=== PATIENT | female | born 1935 | race Two or more races ===

== ENCOUNTER 2024-06-24 21:56 | Inpatient (IN) | payer MEDICARE, OTHER ==
[~2024-06-24] VITALS: Ht 154.9 cm; Wt 52.2 kg
[2024-06-24 23:36] LABS: BASOPHILS # (AUTO) 0.1 K/uL (0.0-0.2); EOSINOPHILS # (AUTO) 0.1 K/uL (0.0-0.7); EOSINOPHILS % (AUTO) 1.1 % (0.0-6.0); HEMATOCRIT 37 % (33-45); HEMOGLOBIN 12.3 g/dL (11.5-14.8); LYMPHOCYTES # (AUTO) 1.5 K/uL (0.8-4.8); LYMPHOCYTES % (AUTO) 26.7 % (20.0-44.0); MEAN CORPUSCULAR HEMOGLOBIN 31 PG (26.0-33.0); MEAN CORPUSCULAR HGB CONC 34 g/dl (31.0-36.0); MEAN CORPUSCULAR VOLUME 92 fL (82-100); MONOCYTES # (AUTO) 0.4 K/uL (0.1-1.30); MONOCYTES % (AUTO) 7.5 % (2.0-12.0); NEUTROPHILS # (AUTO) 3.6 K/uL (1.8-8.9); NEUTROPHILS % (AUTO) 63.7 % (43.0-81.0); PLATELET COUNT (AUTO) 241 K/uL (150-450); RED BLOOD CELL COUNT(AUTO) 3.99 MIL/uL (4.0-5.2); RED CELL DISTRIBUTION WIDTH 14.3 % (11.5-15.0); WHITE BLOOD COUNT (AUTO) 5.7 K/uL (4.3-11.0)
[2024-06-24 23:43] LABS: CALCIUM, SERUM 9.3 mg/dL (8.5-10.1); CARBON DIOXIDE 26 mmol/L (21-32); CHLORIDE 105 mmol/L (98-107); GLUCOSE 103 mg/dL (74-106); POTASSIUM 3.9 mmol/L (3.5-5.1); SODIUM SERUM 139 mmol/L (136-145); UREA NITROGEN, BLOOD 26 mg/dL (7-18)
[2024-06-24 23:44] LABS: APPEARANCE,URINE CLOUDY (CLEAR); BILIRUBIN,URINE NEGATIVE (NEGATIVE); BLOOD, URINE TRACE-INTA Ery/uL (NEGATIVE); COLOR,URINE YELLOW (YELLOW); KETONES,URINE TRACE mg/dL (NEGATIVE); LEUKOCYTE ESTERASE ,URINE 2+ (NEGATIVE); NITRITE, URINE POSITIVE (NEGATIVE); PH,URINE 5.5 (5.0-8.0); PROTEIN,URINE NEGATIVE (NEGATIVE); UGLUCOSE NEGATIVE (NEGATIVE); UROBILINOGEN,URINE 0.2 EU/dL (0.2)
[2024-06-24 23:48] LABS: BACTERIA,URINE Many /HPF (None Seen)
[2024-06-24 23:49] LABS: ADD URINE CULTURE YES; WBC,URINE 51-80 /HPF (0-3)
[2024-06-24 23:50] LABS: SQUAMOUS EPITHELIAL CELL,UR Few /HPF (None Seen)
[2024-06-24 23:50] LABS: ACETAMINOPHEN <10 ug/ml (10-30); ALANINE AMINOTRANSFERASE 16 U/L (12-78); ALBUMIN 3.1 g/dL (3.4-5.0); ALCOHOL, BLOOD < 3 mg/dL (0-10); ALKALINE PHOSPHATASE 80 U/L (46-116); ASPARTATE AMINOTRANSFERASE 20 U/L (15-37); BILIRUBIN,DIRECT 0.1 mg/dL (0.0-0.2); BILIRUBIN,TOTAL 0.5 mg/dL (0.2-1.0); SALICYLATE < 2.3 mg/dL (2.8-20.0); TOTAL PROTEIN, SERUM 6.6 g/dL (6.4-8.2)
[2024-06-25] LABS: AMPHETAMINE, URINE NEGATIVE (NEGATIVE); BARBITURATE, URINE NEGATIVE (NEGATIVE); BENZODIAZEPINE, URINE NEGATIVE (NEGATIVE); CANNABINOID, URINE NEGATIVE (NEGATIVE); COCCAINE, URINE NEGATIVE (NEGATIVE); OPIATE, URINE NEGATIVE (NEGATIVE); PHENCYCLIDINE SCREEN,URINE NEGATIVE (NEGATIVE)
[2024-06-25] MEDS ORDERED: DEXTROSE 50%-WATER 50 ML DISP.SYRIN IV PRN (00:30)
[2024-06-25] MEDS ORDERED: CEPHALEXIN MONOHYDRATE 500 MG CAPSULE PO ONE (01:09)
[2024-06-25] MEDS: CEPHALEXIN MONOHYDRATE 500 MG CAPSULE PO ONE (01:13)
[2024-06-25] MEDS ORDERED: DIPH25CA83 PO (01:16)
[2024-06-25] MEDS ORDERED: ACET-3117 PO (01:16)
[2024-06-25] MEDS ORDERED: MENT7.6L2 PO (01:21)
[2024-06-25] MEDS ORDERED: GUAI-1189 (01:21)
[2024-06-25] MEDS ORDERED: NITR0.4T48 SL (01:21)
[2024-06-25] MEDS ORDERED: IBUP-1953 PO (01:21)
[2024-06-25] MEDS ORDERED: LORAZEPAM 0.5 MG TABLET PO PRN ×2 (03:00)
[2024-06-25] MEDS ORDERED: ACETAMINOPHEN 325 MG TABLET PO PRN (03:00)
[2024-06-25] MEDS ORDERED: MAGNESIUM HYDROXIDE 30 ML UDC PO PRN (03:00)
[2024-06-25] MEDS ORDERED: TEMAZEPAM 7.5 MG CAPSULE PO PRN (03:00)
[2024-06-25] MEDS ORDERED: MAG HYDROX/AL HYDROX/SIMETH 30 ML UDC PO PRN (03:00)
[2024-06-25] MEDS: BLOOD SUGAR DIAGNOSTIC 1 EACH STRIP IN ONE (03:31)
[2024-06-25] MEDS: BLOOD SUGAR DIAGNOSTIC 1 EACH STRIP IN SCH (07:45)
[2024-06-25 08:00] VITALS: BP 126/63; TEMP 97.9; O2SAT 100
[2024-06-25] MEDS: CEPHALEXIN MONOHYDRATE 500 MG CAPSULE PO SCH (08:52)
[2024-06-25] MEDS: DIVALPROEX SODIUM 125 MG TABLET.DR PO SCH (10:30)
[2024-06-25] MEDS: DIVALPROEX SODIUM 125 MG CAP.SPRINK PO SCH (17:00)
[2024-06-25 20:16] VITALS: BP 130/72; TEMP 98.1; O2SAT 100
[2024-06-25] MEDS: risperiDONE 0.25 MG TABLET PO SCH (22:05)
[2024-06-26 08:00] VITALS: BP 120/75; TEMP 97.8; O2SAT 100
[2024-06-26 16:00] VITALS: BP 127/64; TEMP 97.8; O2SAT 98
[2024-06-27 08:00] VITALS: BP 128/58; TEMP 98; O2SAT 96
[2024-06-27 16:00] VITALS: BP 143/79; TEMP 98; O2SAT 99
[2024-06-27 21:15] VITALS: BP 142/72; TEMP 98.1; O2SAT 99
[2024-06-28 16:00] VITALS: BP 126/74; TEMP 98.1; O2SAT 100
[2024-06-28 20:13] VITALS: BP 151/83; TEMP 98; O2SAT 96
[2024-06-28] MEDS: TEMAZEPAM 7.5 MG CAPSULE PO PRN (21:35)
[2024-06-29 16:00] VITALS: BP 129/69; TEMP 97.5; O2SAT 100
[2024-06-29] MEDS: DIVALPROEX SODIUM 125 MG CAP.SPRINK PO SCH (16:56)
[2024-06-29 20:19] VITALS: BP 124/67; TEMP 97.7; O2SAT 100
[2024-06-30 08:00] VITALS: BP 138/87; TEMP 97.9; O2SAT 100
[2024-06-30] MEDS: LEVOFLOXACIN (250MG) 250 MG TABLET PO SCH (10:30)
[2024-06-30 16:00] VITALS: BP 117/71; TEMP 98.6; O2SAT 96
[2024-06-30 20:10] VITALS: BP 145/71; TEMP 98.3; O2SAT 100
[2024-07-01 08:00] VITALS: BP 149/63; TEMP 97.4; O2SAT 95
[2024-07-01 16:00] VITALS: BP 117/72; TEMP 98; O2SAT 99
[2024-07-01 20:21] VITALS: BP 127/68; TEMP 98.4; O2SAT 98
[2024-07-02 08:00] VITALS: BP 128/83; TEMP 98.1; O2SAT 99
[2024-07-02 16:00] VITALS: BP 121/78; TEMP 97.7; O2SAT 97
[2024-07-02 21:16] VITALS: BP 130/64; TEMP 98.4; O2SAT 98
[2024-07-02] MEDS: risperiDONE 0.25 MG TABLET PO SCH (21:20)
[2024-07-03 08:00] VITALS: BP 131/60; TEMP 97.5; O2SAT 97
[2024-07-03 16:00] VITALS: BP 110/66; TEMP 97.7; O2SAT 98
[2024-07-03 20:41] VITALS: BP 103/65; TEMP 98.3; O2SAT 98
[2024-07-04 08:00] VITALS: BP 141/64; TEMP 98.1; O2SAT 100
[2024-07-04] MEDS ORDERED: LEVOFLOXACIN (250MG) 250 MG TABLET PO SCH ×2 (09:00→22:00)
[2024-07-04 16:04] VITALS: BP 132/88; TEMP 98.4; O2SAT 100
[2024-07-04 20:32] VITALS: BP 125/62; TEMP 98.5; O2SAT 100
[2024-07-04] MEDS: LEVOFLOXACIN (250MG) 250 MG TABLET PO SCH (21:41)
[2024-07-04] MEDS: risperiDONE 1 MG TABLET PO SCH (21:42)
[2024-07-05 08:00] VITALS: BP 117/71; TEMP 98.6; O2SAT 98
[2024-07-05 16:04] VITALS: BP 133/59; TEMP 97.9; O2SAT 99
[2024-07-05 20:09] VITALS: BP 135/66; TEMP 98.5; O2SAT 99
[2024-07-06 08:00] VITALS: BP 107/57; TEMP 97.8; O2SAT 100
[2024-07-06 16:00] VITALS: BP 99/53; TEMP 97.9; O2SAT 96
[2024-07-06] MEDS: DIVALPROEX SODIUM 125 MG CAP.SPRINK PO SCH (16:18)
[2024-07-06 20:24] VITALS: BP 144/77; TEMP 98; O2SAT 97
[2024-07-07 08:00] VITALS: BP_SYST 128; BP_SYST 153; BP_DIAS 76; BP_DIAS 81; TEMP 98.7; O2SAT 100
[2024-07-07 16:00] VITALS: BP 114/63; TEMP 98.6; O2SAT 98
[2024-07-07 20:00] VITALS: BP 142/81; TEMP 97.9; O2SAT 99
[2024-07-07 20:45] VITALS: BP 142/81; TEMP 97.9; O2SAT 99
[2024-07-07] MEDS: INSULIN REGULAR, HUMAN 100 UNIT/ML 3 ML VIAL SQ PRN (21:59)
[2024-07-08 08:00] VITALS: BP 136/84; TEMP 98; O2SAT 98
== END 2024-07-08 13:20 | DRG 885 ==
LOC: ER 22:30 → MEDOV2 06-25 00:45 → GPS 06-25 02:52
PROVIDERS: ADMIT Psychiatry & Neurology Psychosomatic Medicine; ATTEND Nurse Practitioner Acute Care
DX: F29 Unspecified psychosis not due to a substance or known physiological condition (principal); N18.9 Chronic kidney disease, unspecified; G92.8 Other toxic encephalopathy; D68.59 Other primary thrombophilia; N39.0 Urinary tract infection, site not specified; J98.11 Atelectasis; Z73.6 Limitation of activities due to disability; E11.22 Type 2 diabetes mellitus with diabetic chronic kidney disease; F32.A Depression, unspecified; F39 Unspecified mood [affective] disorder; B96.20 Unspecified Escherichia coli [E. coli] as the cause of diseases classified elsewhere; R41.9 Unspecified symptoms and signs involving cognitive functions and awareness; Z20.822 Contact with and (suspected) exposure to COVID-19
CPT/HCPCS: 36415; 80048-TC; 80076-TC; 81001; 82962-TC; 85025-TC; 87086-TC; 87186-TC; 97116-TC; 97530-TC; G0480; J1815